=== PATIENT | male | born 1995 | race Caucasian/White ===

== ENCOUNTER 2017-01-28 07:09 | Emergency (ER) | payer MEDICAID, OTHER ==
[~2017-01-28] VITALS: Ht 182.9 cm; Wt 72.7 kg
[2017-01-28 07:12] VITALS: BP_SYST 146; BP_SYST 151; BP_DIAS 100; BP_DIAS 95; PULSE 65; RESP 18; O2SAT 98
--- NOTE | 2017-01-28 07:18 | ED.REPORT ---
HPI-Dental/Mouth Prob Date of Service January 28, 2017 ED Provider: Roverto Fleming MD Pt is a 21 y.o. male who presents to the ED c/o right upper dental pain onset 0400. Pt states that he has had intermittent dental pain and abscesses for "a while" and it flared up this morning. He states that he took 6 Tylenol and one of his friends 30mg Percocet with no relief. He states that he recently moved and no longer has a dentist. Nursing Notes Stated Complaint: TOOTH ABSCESS Chief Complaint: Dental Nursing Notes Reviewed: Yes Allergies: Coded Allergies: No Known Allergies (Unverified , 01/28/17) Scheduled Penicillin V Potassium (Penicillin V Potassium) 500 Mg Tablet 500 MG PO QID Scheduled PRN Hydrocodone-Acetaminophen 5-325 mg (Hydrocodone-Acetaminophen 5-325 mg) 1 Each Tablet 1 TABLET PO Q4H PRN PRN For Pain General Time Seen by MD: 07:17 Chief Complaint Tooth pain Hx Obtained From: Patient Arrived By: Walk-in Onset Occurred: 1 - 4 hours ago Symptom Duration: Since onset Location: : Tooth upper R molar Quality: Painful Severity: Current: Severe Recent Healthcare: No recent doctor visit, No recent hospitalization Similar Sx Previous: Yes Past Medical History Past Medical History Denies Past Surgical History Denies Smoking History Current Every Day Smoker Social History Drug Use: THC Ambulatory Status Independent Review of Systems Constitutional: Denies: Fever Ears / Nose / Throat: Reports: Mouth pain, Toothache GI: Denies: Nausea, Vomiting Complete sys rev & neg: except as marked. Physical Exam Initial Vital Signs Vital Signs (First) Date Time Temp Pulse Resp B/P Pulse Ox O2 Delivery O2 Flow Rate FiO2 01/28/17 07:12 36.2 65 18 146/95 98 Room Air Initial VS: Reviewed Respiratory: Breath sounds normal, No respiratory distress Cardiovascular: Regular rate & rhythm, Intact distal pulses Abdomen / GI: No distention Extremities: Vascular intact, Neuro intact Skin: Warm, Dry, No cyanosis Neurologic: Alert, Oriented, Nonfocal Psychiatric: Mood/affect normal, Behavior normal, Normal thought content Dental / Gums: Positive: Decay extensive (Tooth 13), Dental caries present ( Tooth 13) Tooth 12 absent Tooth 13 has surrounding erythema with no fluctuance or drainage. Neck: Atraumatic, Supple General/Constitutional: Awake, Alert, Well appearing, Well developed, Well hydrated, Well nourished, Not toxic appearing Head / Eyes: Atraumatic, Normocephalic, PERRL, EOMI Re-Eval/Medical Decision Med Decision/Clinical Course Pt is a 21 y.o. male who presents to the ED c/o right upper dental pain onset 0400. Pt states that he has had intermittent dental pain and abscesses for "a while" and it flared up this morning. He states that he took 6 Tylenol and one of his friends 30mg Percocet with no relief. He states that he recently moved and no longer has a dentist. Overall presentation most consistent with significant dental caries, no obvious abscess amenable to incision and drainage, airway widely patent, patient nontoxic in appearance. Considered other possible causes of dental pain including periapical abscess, gingivitis, Fritz's angina, sinusitis, and molar impaction but these are unlikely based on the history and exam. Discussed with the patient the low cost clinic resources available and provided list on discharge. Also reviewed precautions for return to the ED and the importance of f/u with a dentist, which he agreed to do. Here in the emergency room pain was treated with Toradol. Provided with a prescription for antibiotics. Source of Hx: Old records Re-Evaluation/Progress : Time of Eval: 07:20 Re-Evaluation/Progress Note: Pt requests his tooth be pulled, discussed why that is not an option in the ED and plan for discharge with abx. Pt understands and agrees with plan. Counseled Regarding: Diagnosis, Need for follow-up, When/why to return to ED Discharge & Departure Primary Impression: Pain, dental Additional Impression: Pain due to dental caries Disposition: Home Discharge Condition All VS Reviewed: Yes Condition: Improved Patient Instructions: Dental Abscess (ED), Dental Caries (ED) Additional Instructions: Thank you for seeking care at the emergency room. It is difficult for us to make definitive diagnoses in the ED but we believe that you are experiencing a dental abscess Our primary goal today in the ED was to evaluate you for any life-threatening conditions. Your evaluation was reassuring. You will be discharged with a prescription for Vicodin as directed for pain and Penicillin, take 4 times daily for the next 7 days.. You should follow-up with your dentist this week, call Sunday to schedule an appointment. You should return to the ED immediately if you develop fevers, increased pain, swelling, vomiting or any other concerning signs or symptoms. Thank you for letting us partake in your care today. You have been prescribed a narcotic for pain relief. These drugs are usually combined with acetaminophen (Tylenol#3, Percocet, Darvocet, Anexsia, Vicodin) or aspirin (Empirin#3, Percodan, Synalogs-DC) for increased effect. Narcotics act on the central nervous system to reduce pain; they also impair mental alertness and physical abilities. We advise you not to drink alcohol, drive a car, or operate dangerous equipment when you are taking these drugs. You can lessen stomach irritation from your medicine by taking it with meals or a full glass of water. Common side effects of narcotics are: Nausea and vomiting , heartburn, constipation, dizziness, sleepiness, and mood changes. If you have bothersome side effects or symptoms of an allergic reaction (itching, hives, rash), stop taking your medicine and call your doctor or the emergency room right away. Please keep your narcotic medicine well out of the reach of children. Referrals: [facility] Nell Attestation Portions of this note were transcribed by Trisha Adam. I, Dr. Fleming personally performed the history, physical exam and medical decision-making; I reviewed and confirmed the accuracy of the information in the transcribed note. Signed by: Nell Stevens, 01/28/17 and 0819. Roverto Fleming MD January 28, 2017 07:18 TRISHA ADAM January 28, 2017 07:27
[2017-01-28] MEDS ORDERED: HYDR-4003 PO (07:24)
[2017-01-28] MEDS ORDERED: PENI500T PO (07:24)
== END 2017-01-28 07:46 | disposition home or self-care (01) ==
LOC: SED 07:09
DX: K02.9 Dental caries, unspecified (principal); F17.200 Nicotine dependence, unspecified, uncomplicated
CPT/HCPCS: 96372; 99283; J1885